=== PATIENT | female | born 1995 | race Caucasian/White ===

== ENCOUNTER 2019-04-05 14:27 | Inpatient (IN) | payer SELFPAY ==
[2019-04-05] VITALS (21 sets, daily range): BP systolic 113–199; BP diastolic 56–95
[~2019-04-05] VITALS: Ht 165.1 cm; Wt 86.7 kg
[2019-04-05] MEDS ORDERED: LACTATED RINGER'S 1000 ML IV STA (15:05)
[2019-04-05 15:33] LABS: BASO % 0.1 % (0.0-1.0); HEMATOCRIT 40.6 % (36.0-47.0); HEMOGLOBIN 13.7 g/dl (12.0-15.5); LYMPH # 1.4 10^3/uL (1.5-5.0); LYMPH % 6.7 % (24.0-44.0); MEAN CORPUSCULAR HEMOGLOBIN 30.4 pg (27.0-33.0); MEAN CORPUSCULAR HGB CONC 33.7 g/dl (32.0-36.5); MONO # 1.2 10^3/uL (0.0-0.8); MONO % 5.4 % (0.0-5.0); NEUTROPHILS # 18.7 10^3/uL (1.5-8.5); NEUTROPHILS % 87.2 % (36.0-66.0); PLATELET COUNT, AUTOMATED 274 10^3/uL (150-450); RED BLOOD COUNT 4.51 10^6/uL (4.00-5.40); WHITE BLOOD COUNT 21.4 10^3/uL (4.0-10.0)
[2019-04-05] MEDS ORDERED: PENICILLIN G POTASSIUM IV 5 MU in D5W MINI-BAG PLUS 100 ML IV STA (15:47)
[2019-04-05] MEDS: LR 1,000 ML IV SCH (16:01)
[2019-04-05] MEDS ORDERED: PROMETHAZINE INJ 25 MG/ML VIAL (J2550) IV ONE (17:15)
[2019-04-05] MEDS ORDERED: BUTORPHANOL 2 MG/ML INJ (J0595) IV ONE (17:15)
[2019-04-05] MEDS ORDERED: FENTANYL 2MCG/ML ROPIVACAINE 0.2% IN 0.9% NACL 100ML IVBAG As Ordered ONE (17:40)
[2019-04-05] MEDS ORDERED: EPIDURAL/PCA KEYS XX PRN (18:45)
[2019-04-05] MEDS ORDERED: diphenhydrAMINE INJ 50MG/ML VIAL (J1200) IV PRN (18:45)
[2019-04-05] MEDS ORDERED: NALOXONE INJ 0.4 MG/1 ML VIAL (J2310) IV PRN (18:45)
[2019-04-05] MEDS ORDERED: REFRIGERATOR IV KEYS XX PRN (18:45)
[2019-04-05] MEDS ORDERED: ONDANSETRON 4MG/2ML VIAL (J2405) IV PRN (18:45)
[2019-04-05] MEDS ORDERED: FENTANYL/ROPIVACAINE/NACL BAG 100 ML EPIDURAL SCH (18:45)
[2019-04-05] MEDS ORDERED: ePHEDrine SULFATE 25 MG/5 ML(5MG/ML) SYRINGE IV PRN (18:45)
[2019-04-05] MEDS ORDERED: EPIDURAL COMMENT XX SCH (18:45)
[2019-04-05] MEDS ORDERED: LACTATED RINGER'S 1000 ML IV PRN (18:45)
[2019-04-05] MEDS ORDERED: OXYTOCIN 30 UNITS IN 0.9% NaCl 500ML IV BAG (J2590) As Ordered ONE (18:57)
--- NOTE | 2019-04-05 19:46 | HPE ---
DATE OF ADMISSION: 04/05/2019 Lisa is a 23-year-old female 1, para 0, Ha young lady with no formal care. She presented after laboring at her home for approximately 36 hours with complaints of contractions every 3-5 minutes. Upon evaluation in labor and delivery she was found to be in active labor with fetus in occiput posterior position at 8 cm. At this point the decision was made for admission. Her labs sent. Full history reviewed. PAST MEDICAL HISTORY: Denies. PAST SURGICAL HISTORY: Denies. SOCIAL HISTORY: She is . Denies any alcohol or drug use. MEDICATIONS: None. ALLERGIES: No known drug allergies. PHYSICAL EXAMINATION ON ADMISSION: Normal-appearing female with poor dentition. Abdomen: Soft, nontender, nondistended. Extremities: No clubbing, cyanosis or edema. Vaginal exam: 8 cm dilated, 100% effaced, fetus at -2 station in occiput posterior position. Tracing reviewed, category one tracing. Contractions every 3-5 minutes. ASSESSMENT: Intrauterine at 40+ weeks gestation by LMP, no formal care, in active labor. PLAN: Admit to labor and delivery. Routine labs sent. Awaiting delivery. Pain management discussed. The patient opted for an epidural. Will continue to monitor. Anticipate delivery.
--- NOTE | 2019-04-05 20:21 | DN ---
DATE: 04/05/2019 Lisa is a 23-year-old female, 1, para 0 who was admitted in active labor with no care. She progressed to fully dilated after artificial rupture of membranes, questionable fore-bag. She then pushed and delivered a live male in occiput posterior position with a nuchal cord times one. scores 8 and 9. weight 7 pounds 3 ounces. Placenta delivered spontaneously intact. Three-vessel cord. Perineum, vagina and cervix inspected. No laceration noted. Estimated blood loss 300 mL. Both mother and baby in stable condition.
[2019-04-06] MEDS: PENICILLIN G POTASSIUM IV 2.5 MU in IV 1 EA IV SCH ×2 (01:07→01:08)
[2019-04-06] MEDS: LR 1,000 ML IV SCH (01:08)
[2019-04-06 06:00] VITALS: BP 110/62
[2019-04-06 11:24] LABS: HEPATITIS C VIRUS ABY INDEX < 0.0 INDEX (<0.8); HIV 1&2 SCREEN CENTAUR NEGATIVE (NEGATIVE); RUBELLA IgG QUALITATIVE SUSCEPTIBLE (IMMUNE)
== END 2019-04-06 13:25 | disposition home or self-care (01) | DRG 560 ==
LOC: EDBD 14:27 → M LDO 14:27 → M LDI 15:04 → M OBS 21:28
PROVIDERS: ADMIT Obstetrics & Gynecology; ATTEND Obstetrics & Gynecology
PROC: 10E0XZZ Delivery of Products of Conception, External Approach (ICD-10-PCS; principal; 2019-04-05)
PROC: 10907ZC Drainage of Amniotic Fluid, Therapeutic from Products of Conception, Via Natural or Artificial Opening (ICD-10-PCS; 2019-04-05)
DX: O48.0 Post-term pregnancy (principal); O69.81X0 Labor and delivery complicated by cord around neck, without compression, not applicable or unspecified; Z37.0 Single live birth; Z3A.40 40 weeks gestation of pregnancy; O09.31 Supervision of pregnancy with insufficient antenatal care, first trimester; O09.32 Supervision of pregnancy with insufficient antenatal care, second trimester; O09.33 Supervision of pregnancy with insufficient antenatal care, third trimester